=== PATIENT | male | born 1985 | race Caucasian/White ===

== ENCOUNTER 2023-11-10 13:31 | Emergency (ER) | payer BC ==
[~2023-11-10] VITALS: Ht 170.2 cm; Wt 99.8 kg
[2023-11-10 13:34] VITALS: BP_SYST 177; PULSE 78; RESP 18; TEMP 98.1; O2SAT 97
[2023-11-10] MEDS ORDERED: ONDANSETRON 4 MG ODT TAB PO ONE (15:15)
[2023-11-10] MEDS ORDERED: KETOROLAC TROMETHAMINE 30 MG VIAL IM ONE (15:15)
[2023-11-10 16:43] LABS: BILIRUBIN,URINE NEGATIVE (NEGATIVE); BLOOD, URINE 3+ (NEGATIVE); CLARITY/URINE CLEAR (CLEAR); COLOR,URINE YELLOW (YELLOW); GLUCOSE,URINE NEGATIVE (NEGATIVE); KETONES,URINE TRACE (NEGATIVE); LEUKOCYTE ESTERASE ,URINE NEGATIVE (NEGATIVE); NITRITE, URINE NEGATIVE (NEGATIVE); PH,URINE 6.5 (5.0-8.0); PROTEIN URINE TRACE (NEGATIVE)
[2023-11-10 16:58] LABS: LYMPHOCYTES # (AUTO) 1.3 K/uL (1.0-5.5); MEAN CORPUSCULAR HGB CONC 34 % (32-36); MONOCYTES # (AUTO) 0.5 K/uL (0.0-1.0); MONOCYTES % (AUTO) 4.6 % (1.7-9.3); NEUTROPHILS # (AUTO) 9.2 K/uL (1.8-7.7)
[2023-11-10 16:58] LABS: WBC,URINE 0-3 /HPF (0-3)
[2023-11-10 16:59] LABS: BACTERIA,URINE RARE /HPF (None Seen); MUCUS,URINE None Seen /LPF (None Seen)
[2023-11-10 17:07] LABS: BASOPHILS % (AUTO) 0.4 % (0.0-2.0); EOSINOPHILS % (AUTO) 0.3 % (0.0-4.0); HEMATOCRIT 46.8 % (36-54); HEMOGLOBIN 16.1 g/dL (14.0-18.0); LYMPHOCYTES % (AUTO) 11.6 % (20.5-51.5); MEAN CORPUSCULAR HEMOGLOBIN 28 pg (27-31); MEAN CORPUSCULAR VOLUME 82 fL (79.0-98.0); NEUTROPHILS % (AUTO) 83.1 % (40.0-70.0); RED BLOOD CELL COUNT(AUTO) 5.73 MIL/uL (4.2-6.2); RED CELL DISTRIBUTION WIDTH 13.5 % (9.0-15.0)
[2023-11-10 17:13] LABS: PLATELET COUNT (AUTO) 251 K/uL (130-430)
[2023-11-10 17:14] LABS: ALBUMIN 4.5 g/dL (3.4-4.8); BILIRUBIN,DIRECT 0.2 mg/dL (0.0-0.3); CALCIUM 8.8 mg/dL (8.4-11.0); CREATININE 1.01 mg/dL (0.55-1.30); POTASSIUM 4.1 mmol/L (3.5-5.1); TOTAL BILIRUBIN 0.7 mg/dL (0.0-1.0); TOTAL PROTEIN, SERUM 7.7 g/dL (6.4-8.3)
[2023-11-10] MEDS ORDERED: ACET-2634 PO (18:46)
[2023-11-10] MEDS ORDERED: SULF1TAB48 PO (18:46)
[2023-11-10] MEDS ORDERED: TRAM50TA2 PO (18:46)
[2023-11-10] MEDS ORDERED: IBUP-1969 PO (18:46)
[2023-11-10 18:57] VITALS: BP_SYST 164; PULSE 75; RESP 18; TEMP 98.4; O2SAT 98
== END 2023-11-10 18:57 | disposition home or self-care (01) ==
LOC: SED 13:31
DX: N20.1 Calculus of ureter (principal); R10.31 Right lower quadrant pain; R11.2 Nausea with vomiting, unspecified; Z79.899 Other long term (current) drug therapy
CPT/HCPCS: 99285; 74176; 80076; 80048; 81001; 83690; 85025; 36415; 76376; 96372; 81000; 81015; Q0162; J1885